=== PATIENT | male | born 1950 | race Caucasian/White ===

== ENCOUNTER 2020-11-14 10:56 | Emergency (ER) | payer MEDICARE, MEDICAID ==
[~2020-11-14] VITALS: Ht 177.8 cm; Wt 97.5 kg
[2020-11-14 10:57] VITALS: BP_SYST 182
[2020-11-14] MEDS ORDERED: MORPHINE SULFATE 30 MG Immediate Release TABLET PO ONE (12:30)
[2020-11-14] MEDS ORDERED: MORPHINE SULFATE 30 MG Immediate Release TABLET ONE ×2 (12:38→12:40)
[2020-11-14 13:22] VITALS: BP_SYST 112
== END 2020-11-14 13:22 | disposition home or self-care (01) ==
LOC: SED 10:56
DX: F11.229 Opioid dependence with intoxication, unspecified (principal); F41.9 Anxiety disorder, unspecified
CPT/HCPCS: 99283; J2274

== ENCOUNTER 2022-08-15 19:47 | Emergency (ER) | payer MEDICARE, OTHER ==
[~2022-08-15] VITALS: Ht 170.2 cm; Wt 95.3 kg
[2022-08-15 20:01] VITALS: BP_SYST 160
--- NOTE | 2022-08-15 20:36 | NUR ---
Patient to ER bed 5 to gown for evaluation. Side rails up. Report given to WILLI EASTMAN(REG).
--- NOTE | 2022-08-15 20:56 | NUR ---
BIB AMBULANCE FROM HOME WITH C/O LEFT HIP PAIN, PATIENT IS UP AMBULATING AROUND ROOM, ASSISTED BACK TO BED, PATIENT IS UNABLE TO BE STILL, STATES GONING THROUGH WITHDRAW FROM PERCOCET, NO S/S OF ANY RESPIRATORY DISTRESS NOTED, ABD SOFT NON TENDER TO PALPATION. WILL CONTINUE TO MONITOR.
--- NOTE | 2022-08-15 21:52 | NUR ---
ER at bedside examining patient.
[2022-08-15] MEDS ORDERED: MORPHINE 4 MG INJ. 4 MG/ML VIAL IM ONE (22:00)
--- NOTE | 2022-08-15 22:12 | NUR ---
MEDICATED PER ORDER, TAKEN OFF UNIT TO RADIOLOGY VIA WHEELCHAIR.
--- NOTE | 2022-08-15 22:22 | NUR ---
RETURNED FROM RADIOLOGY DEPARTMENT.
[2022-08-15] MEDS ORDERED: HYDR-3917 PO (23:11)
--- NOTE | 2022-08-15 23:34 | NUR ---
PATIENT SLEEPING AT THIS TIME NO S/S OF ANY PAIN OR DISCOMFORT.
--- NOTE | 2022-08-16 00:26 | NUR ---
REPORT GIVEN TO COMPA, ACCEPTING NURSE FROM FACILITY.
--- NOTE | 2022-08-16 00:58 | NUR ---
ACI GIVEN PATIENT STATES UNDERSTANDING, REPORT GIVEN TO TRANSPORT TEAM. PATIENT REMAINS STABLE FOR TRANSPORT.
== END 2022-08-16 00:53 | disposition home or self-care (01) ==
LOC: SED 19:47
DX: S80.01XA Contusion of right knee, initial encounter (principal); S00.81XA Abrasion of other part of head, initial encounter; Z91.041 Radiographic dye allergy status; Z79.899 Other long term (current) drug therapy; W01.198A Fall on same level from slipping, tripping and stumbling with subsequent striking against other object, initial encounter; X58.XXXA Exposure to other specified factors, initial encounter; Y93.89 Activity, other specified; Y92.89 Other specified places as the place of occurrence of the external cause; Y99.8 Other external cause status
CPT/HCPCS: 99284; 70450; 73564; 76376; 96372; J2270